=== PATIENT | female | born 1960 | race Caucasian/White ===

== ENCOUNTER → 2016-09-04 | Outpatient (CLI) | payer BC, OTHER ==
--- NOTE | 2016-09-04 17:11 | CT ---
EXAMINATION TYPE: CT sinus wo con DATE OF EXAM: 09/04/2016 5:00 PM COMPARISON: NONE HISTORY: facial pain and chronics sinus infections CT DLP: 570.8 mGycm Automated exposure control for dose reduction was used. FINDINGS: There is bilateral patency of the ostiomeatal complex. Orbital margins are intact. Maxilla is intact. There is normal aeration of the paranasal sinuses. Mastoid sinuses appear normal as well. I see no b temo destructive process. IMPRESSION: NEGATIVE CT SCAN OF THE PARANASAL SINUSES.
== END | disposition home or self-care (01) ==
LOC: RADCTMAIN 16:40
PROVIDERS: ATTEND Otolaryngology
DX: J32.9 Chronic sinusitis, unspecified (principal)
CPT/HCPCS: 70486

== ENCOUNTER → 2016-10-31 | Outpatient (CLI) | payer BC, OTHER ==
--- NOTE | 2016-10-31 15:33 | MR ---
EXAMINATION TYPE: MR thoracic spine wo con DATE OF EXAM: 10/31/2016 1:38 PM COMPARISON: NONE HISTORY: post laminectomy, eval for stenosis CONTRAST: None FINDINGS: Spinal cord maintains normal signal through its visualized course. Disc heights are preserv ed. Mild diffuse disc desiccation may be present. A T8 hemangioma is likely present. T1-2, T2-3: Minimal central disc bulge is present with anterior thecal sac contact. No cord deformity is evident. No spinal canal stenosis is present. Through the remainder of the thoracic spine, no focal disc herniation is evident. No spinal canal maco nosis or neural foraminal stenosis is evident. IMPRESSION: 1. Mild central focal bulging T1-2 and T2-3 with mild anterior thecal sac compression. 2. No spinal canal stenosis. 3. No cord contact or cord deformity.
== END | disposition home or self-care (01) ==
LOC: RADMRIMAIN 12:34
PROVIDERS: ATTEND Neurological Surgery
DX: M51.24 Other intervertebral disc displacement, thoracic region (principal)
CPT/HCPCS: 72146

== ENCOUNTER → 2019-02-26 | Outpatient (CLI) | payer OTHER ==
--- NOTE | 2019-02-26 10:00 | US ---
EXAMINATION TYPE: US gallbladder DATE OF EXAM: 02/26/2019 COMPARISON: CT 2010 CLINICAL HISTORY: R10.11 Rt Upper quadrant pain. EXAM MEASUREMENTS: Liver Length: 15.3 cm Gallbladder Wall: 0.1 cm CBD: 0.4 cm Right Kidney: 10.1 x 4.6 x 3.5 cm Pancreas: Obscured by bowel gas Liver: There is a questionable subcentimeter hyperechoic lesion within the inferior right lobe of th e liver on image 26/67 only. This could be further evaluated with three-phase CT. Gallbladder: No stones seen. GB with folds and probable 3 mm nonshadowing nondependent polyp. Evidence for sonographic Perdue's sign: No CBD: wnl Right Kidney: wnl IMPRESSION: 1. No sonographic evidence of cholelithiasis or cholecystitis however there appears to be a 3 mm gall bladder polyp. Annual surveillance is recommended for polyps of this size. 2. Possible subcentimeter hyperechoic hepatic lesion that could represent a small hemangioma. Three-p hase CT abdomen could be performed for further evaluation. 3. Obscuration of the pancreas by overlying bowel gas.
== END | disposition home or self-care (01) ==
LOC: RADUSWWP 09:20
PROVIDERS: ATTEND Family Medicine
DX: R10.11 Right upper quadrant pain (principal)
CPT/HCPCS: 76705

== ENCOUNTER → 2019-04-15 | Outpatient (CLI) | payer OTHER ==
--- NOTE | 2019-04-16 07:51 | NM ---
Nuclear medicine hepatobiliary scan. HISTORY: Pain. DOSAGE: The patient received 8 ounces and sure plus and 4.6 mCi of Technetium 99m Choletec. FINDINGS: There is normal hepatic extraction. The gallbladder is seen by 35 minutes. There is bilia ry to bowel clearance by 20 minutes. Ejection fraction is 98%. IMPRESSION: 1. No evidence of cholecystitis. 2. Ejection fraction 98% which can occasionally be seen with hyperdynamic gallbladder.
== END | disposition home or self-care (01) ==
LOC: RADNMMAIN 15:01
PROVIDERS: ATTEND Family Medicine
DX: R10.11 Right upper quadrant pain (principal)
CPT/HCPCS: 78226; A9537

== ENCOUNTER → 2021-04-15 | Outpatient (CLI) | payer OTHER ==
--- NOTE | 2021-04-16 09:31 | CT ---
EXAMINATION TYPE: CT abdomen pelvis wo con DATE OF EXAM: 04/15/2021 COMPARISON: CT dated 07/11/2010 HISTORY: ABD PAIN AND VOMITING CT DLP: 540.8 mGycm Automated exposure control for dose reduction was used. TECHNIQUE: Helical acquisition of images from the lung bases through the pelvis. FINDINGS: Lack of intravenous contrast could compromise sensitivity LUNG BASES: No significant abnormality is appreciated. AORTA: No significant abnormality is appreciataed. LIVER/GB: No significant abnormality is appreciated. PANCREAS: No significant abnormality is seen. SPLEEN: No significant abnormality is seen. ADRENALS: No significant abnormality is seen. KIDNEYS: Punctate nonobstructive calcification present at the lower pole the left kidney is present, at the upper pole there is a small cystic focus suspected. There is no hydronephrosis bilaterally.. REPRODUCTIVE ORGANS: Not seen URINARY BLADDER: No significant abnormality is seen. BOWEL: Thickening along the rectosigmoid colon, descending colon is nonspecific, may be muscular hyp ertrophy or lack of distention, difficult to exclude a mucosal lesion or colitis. Appendix is not see n FREE AIR: No Free Air is visible. ASCITES: None visible. PELVIC ADENOPATHY: None visualized. RETROPERITONEAL ADENOPATHY: No Retroperitoneal Adenopathy visible. OSSEOUS STRUCTURES: Postop changes are noted to the lower lumbar spine, intervertebral spacing block s present at L4-5 and L5-S1, there is streak artifact present, laminectomy change. Degenerative disc changes, spinal curvature noted. IMPRESSION: PARAESOPHAGEAL HIATAL HERNIA, PARTIAL INTRATHORACIC STOMACH. Additional findings above, postop change .
== END | disposition home or self-care (01) ==
LOC: RADCTMAIN 17:18
PROVIDERS: ATTEND Family Medicine
DX: K44.9 Diaphragmatic hernia without obstruction or gangrene (principal)
CPT/HCPCS: 74176

== ENCOUNTER 2021-05-23 12:31 | Day surgery (SDC) | payer OTHER ==
[2021-05-18 13:41] VITALS: BMI 25.8
[~2021-05-23 12:31] MED LIST: LACTATED RINGERS 1,000 ML IV SCH; LIDOCAINE 1% (10MG/ML) FOR IV START INTRADERMA PRN
[2021-05-23 13:07] VITALS: TEMP 97.1
[2021-05-23] MEDS ORDERED: PROPOFOL 10 MG/ML 20 ML VIAL IV ONE (15:08)
--- NOTE | 2021-05-23 15:12 | P.GSHP ---
History of Present Illness H&P Date: 05/23/21 Chief Complaint: GERD This is a 7-year-old female who presents today for EGD. She's had issues with GERD. Past Medical History Past Medical History: Asthma, GERD/Reflux, Hyperlipidemia, Hypertension, Neurologic Disorder, Thyroid Disorder Additional Past Medical History / Comment(s): HIATAL HERNIA. MIGRAINES History of Any Multi-Drug Resistant Organisms: None Reported Past Surgical History: Appendectomy, Back Surgery, Hysterectomy, Orthopedic Surgery Additional Past Surgical History / Comment(s): COLONOSCOPY/EGD. CERVICAL FUSIO N. JPAIN STIMULATOR RT HIP. RT FOOT SX Past Anesthesia/Blood Transfusion Reactions: Postoperative Nausea & Vomiting (PONV) Smoking Status: Never smoker - Past Family History Sister(s) Family Medical History: Cancer Medications and Allergies Home Medications Medication Instructions Recorded Confirmed Type Atorvastatin [Lipitor] 20 mg PO HS 05/18/21 05/18/21 History Cetirizine HCl [Zyrtec ODT] 10 mg PO DAILY 05/18/21 05/18/21 History Cyclobenzaprine [Flexeril] 10 mg PO BID 05/18/21 05/18/21 History Dicyclomine HCl 20 mg PO TID 05/18/21 05/18/21 History HYDROcodone/APAP 10-325MG [[place] 1 tab PO TID PRN 05/18/21 05/18/21 History 10-325] Levothyroxine Sodium [Synthroid] 100 mcg PO DAILY 05/18/21 05/18/21 History Metoclopramide [Reglan] 10 mg PO TID 05/18/21 05/18/21 History Metoprolol Tartrate [Lopressor] 25 mg PO BID 05/18/21 05/18/21 History Montelukast [Singulair] 10 mg PO HS 05/18/21 05/18/21 History Omeprazole [PriLOSEC] 40 mg PO BID 05/18/21 05/18/21 History Ondansetron [Zofran] 4 mg PO Q8HR PRN 05/18/21 05/18/21 History SUMAtriptan SUCCINATE [Imitrex] 100 mg PO DIRECTED PRN 05/18/21 05/18/21 History Topiramate [Topiramate ER] 100 mg PO BID 05/18/21 05/18/21 History Allergies Allergy/AdvReac Type Severity Reaction Status Date / Time citalopram [From Celexa] Allergy Nausea & Verified 05/18/21 13:32 Vomiting duloxetine [From Cymbalta] Allergy Nausea & Verified 05/18/21 13:32 Vomiting Surgical - Exam Vital Signs Temp Pulse Resp BP Pulse Ox 97.1 F L 71 15 138/91 100 05/23/21 13:06 05/23/21 13:06 05/23/21 13:06 05/23/21 13:06 05/23/21 13:06 - General well developed, well nourished, no distress - Eyes PERRL - ENT normal pinna - Neck no masses - Respiratory normal expansion - Cardiovascular Rhythm: regular - Abdomen Abdomen: soft, non tender Assessment and Plan Assessment: GERD. We'll perform EGD.
--- NOTE | 2021-05-23 15:22 | P.OP ---
Date of Procedure: 05/23/21 Preoperative Diagnosis: GERD Postoperative Diagnosis: Paraesophageal hernia Procedure(s) Performed: EGD Anesthesia: MAC Surgeon: Gary Boyle Pathology: none sent Condition: stable Disposition: PACU Description of Procedure: The patient's placed on the endoscopy table in the lateral position. She rece ived IV sedation. The gastroscope was oropharynx passed in the esophagus into the stomach. The scope was then placed through the pylorus. The first and second portion of the duodenum appeared normal. Scope was brought back the antrum was mildly inflamed. A biopsies performed. The scope was unretroflexed and remainder of the stomach appeared normal. There was a moderate size hiatal hernia. The GE junction was at 37 cm. The distal esophagus appeared minimally inflamed. The proximal esophagus appeared normal. Scope was withdrawn for patient.
[2021-05-23 15:37] VITALS: BP 148/91; PULSE 78; RESP 17
== END 2021-05-23 15:54 | disposition home or self-care (01) ==
LOC: ORWHC2ENDO 12:31
PROVIDERS: ATTEND Surgery
DX: K21.9 Gastro-esophageal reflux disease without esophagitis (principal); K44.9 Diaphragmatic hernia without obstruction or gangrene; I10 Essential (primary) hypertension; E78.5 Hyperlipidemia, unspecified; J45.909 Unspecified asthma, uncomplicated; Z79.899 Other long term (current) drug therapy; Z88.8 Allergy status to other drugs, medicaments and biological substances; Z90.49 Acquired absence of other specified parts of digestive tract
CPT/HCPCS: 43239; J2704; 88305

== ENCOUNTER 2021-06-10 06:00 | Observation (INO) | payer OTHER ==
[~2021-06-10 06:00] MED LIST changes: +ACETAMINOPHEN TAB 500 MG TAB PO PRN; +DEXAMETHASONE SOD PHOSPHATE 4 MG/ML 1 ML VIAL IV ONE; +HEPARIN SODIUM,PORCINE/PF 5,000 UNIT/0.5 ML SYRINGE SQ PRN; +HYDROmorphone 0.5 MG/0.5 ML SYRINGE IVP PRN; -LACTATED RINGERS 1,000 ML IV SCH; -LIDOCAINE 1% (10MG/ML) FOR IV START INTRADERMA PRN; +ONDANSETRON 4 MG/2 ML VIAL IVP ONE
[2021-06-10] MEDS: LACTATED RINGERS 1,000 ML IV SCH (06:55)
[2021-06-10] MEDS ORDERED: MIDAZOLAM 2 MG/2 ML VIAL IVP ONE (07:10)
[2021-06-10] MEDS ORDERED: SCOPOLAMINE 1.5MG/72HR PATCH TRANSDERM ONE (07:10)
[2021-06-10] MEDS ORDERED: MIDAZOLAM 2 MG/2 ML VIAL ONE (08:01)
[2021-06-10] MEDS ORDERED: ROCURONIUM 10 MG/ML (5 ML VIAL) IV ONE (08:01)
[2021-06-10] MEDS ORDERED: KETOROLAC 15 MG/ML 1 ML VIAL ONE (08:01)
[2021-06-10] MEDS ORDERED: fentaNYL (PF) 50 MCG/ML 2 ML AMP ONE (08:01)
[2021-06-10] MEDS ORDERED: LIDOCAINE 1% INJ 10MG/ML (20 ML MDV) ONE (08:01)
[2021-06-10] MEDS ORDERED: NEOSTIGMINE 1 MG/ML 10 ML VIAL ONE (08:01)
[2021-06-10] MEDS ORDERED: PROPOFOL 10 MG/ML 20 ML VIAL IV ONE (08:01)
[2021-06-10] MEDS ORDERED: GLYCOPYRROLATE 0.2 MG/ML 2 ML VIAL ONE (08:01)
[2021-06-10] MEDS ORDERED: HYDROmorphone (PF) 1 MG/ML ONE (08:01)
[2021-06-10] MEDS ORDERED: LABETALOL 5 MG/ML VIAL MDV ONE (08:01)
[2021-06-10] MEDS ORDERED: SUCCINYLCHOLINE CHLORIDE 100 MG/5 ML SYR IV ONE (08:01)
[2021-06-10] MEDS ORDERED: BUPIVACAINE (PF) 0.5% 30 ML VIAL SQ ONE (08:22)
[2021-06-10] MEDS ORDERED: LACTATED RINGERS 1,000 ML IV ONE (08:48)
--- NOTE | 2021-06-10 09:00 | P.GSHP ---
History of Present Illness H&P Date: 06/10/21 Chief Complaint: GERD This is a 7-year-old female who's had long-standing problems with dysphagia and reflux. Patient has a moderately large hiatal hernia. Patient presents today for laparoscopic Jey fundal plication. She is aware the risks of surgery. Past Medical History Past Medical History: Asthma, GERD/Reflux, Hyperlipidemia, Hypertension, Neurologic Disorder, Thyroid Disorder Additional Past Medical History / Comment(s): HIATAL HERNIA. MIGRAINES History of Any Multi-Drug Resistant Organisms: None Reported Past Surgical History: Appendectomy, Back Surgery, Hysterectomy, Orthopedic Surgery Additional Past Surgical History / Comment(s): COLONOSCOPY/EGD. CERVICAL FUSION. PAIN STIMULATOR RT HIP. RT FOOT SX Past Anesthesia/Blood Transfusion Reactions: Postoperative Nausea & Vomiting (PONV) Smoking Status: Never smoker - Past Family History Sister(s) Family Medical History: Cancer Medications and Allergies Home Medications Medication Instructions Recorded Confirmed Type Atorvastatin [Lipitor] 20 mg PO HS 05/18/21 06/10/21 History Cetirizine HCl [Zyrtec ODT] 10 mg PO DAILY 05/18/21 06/10/21 History Cyclobenzaprine [Flexeril] 10 mg PO BID 05/18/21 06/10/21 History Dicyclomine HCl 20 mg PO TID 05/18/21 06/10/21 History HYDROcodone/APAP 10-325MG [[place] 1 tab PO TID PRN 05/18/21 06/10/21 History 10-325] Levothyroxine Sodium [Synthroid] 100 mcg PO DAILY 05/18/21 06/10/21 History Metoclopramide [Reglan] 10 mg PO TID 05/18/21 06/10/21 History Metoprolol Tartrate [Lopressor] 25 mg PO BID 05/18/21 06/10/21 History Montelukast [Singulair] 10 mg PO HS 05/18/21 06/10/21 History Omeprazole [PriLOSEC] 40 mg PO BID 05/18/21 06/10/21 History Ondansetron [Zofran] 4 mg PO Q8HR PRN 05/18/21 06/10/21 History SUMAtriptan SUCCINATE [Imitrex] 100 mg PO DIRECTED PRN 05/18/21 06/10/21 History Topiramate [Topiramate ER] 100 mg PO BID 05/18/21 06/10/21 History Allergies Allergy/AdvReac Type Severity Reaction Status Date / Time citalopram [From Celexa] Allergy Nausea & Verified 06/10/21 06:46 Vomiting duloxetine [From Cymbalta] Allergy Nausea & Verified 06/10/21 06:46 Vomiting Surgical - Exam Vital Signs Temp Pulse Resp BP Pulse Ox 98.3 F 69 16 171/90 97 06/10/21 06:45 06/10/21 06:45 06/10/21 06:45 06/10/21 06:45 06/10/21 06:45 - General well developed, well nourished, no distress - Eyes PERRL - ENT normal pinna - Neck no masses - Respiratory normal expansion - Cardiovascular Rhythm: regular - Abdomen Abdomen: soft, non tender Assessment and Plan Assessment: GERD. We'll perform laparoscopic Jey fundal plication
--- NOTE | 2021-06-10 09:01 | P.OP ---
Date of Procedure: 06/10/21 Preoperative Diagnosis: GERD Postoperative Diagnosis: GERD Procedure(s) Performed: Laparoscopic Jey fundal plication Anesthesia: KEENA Surgeon: Gary Boyle Estimated Blood Loss (ml): 5 Pathology: none sent Condition: stable Disposition: PACU Description of Procedure: HarThe patient was placed on the operating table in the supine position. The patient received general anesthesia. And was placed in dorsal lithotomy position. The patient was prepped and draped in the usual sterile fashion. The skin incision sites were anesthetized with 1% local Xylocaine. The skin was incised in the left periumbilical area and then using a blade less 5 mm trocar u nder direct visualization panel cavity was entered. After adequate insufflation the laparoscope was then placed into the peritoneal cavity. Next a 5 mm trochars placed in the right epigastric position. Another 5 millimeter trocar the right lateral position. Another 5 millimeter trocar in the left lateral position a 5 mm trocar is placed in the left epigastric position. And then the initial 5 mm trocar was exchanged for a 10 mm trocar. The left lateral lobe liver was retracted. The hernia was seen. The crural defect was then dissected using the Harmonic scissors device. A 360 crural dissection was performed the esophagus stomach was reduced back into the peritoneal Cavity. The crural defect was then closed using 2-0 Ethibond suture. Next the fundus of the stomach was mobilized using the [place] scissors device. and then a 58-[place] bougie dilator was placed oropharynx passed into the esophagus and stomach the fundal plication wrap was then performed by grasping the fundus posteriorly and bringing it around the esophagus and stomach fundoplication was then performed using 2-0 Ethibond suture. Care was taken that the fundal location rested over top of the intra-abdominal esophagus. There was no injury seen to the stomach or esophagus. The dilator was then withdrawn. The abdomen was irrigated there is no bleeding seen. The trochars were then withdrawn and then skin incision sites were closed using 3-0 Monocryl suture Steri-Strips are applied. Patient thought procedure well and sent to recovery room in stable condition.
[2021-06-10] MEDS ORDERED: LABETALOL SYRINGE 5 MG/ML IVP ONE ×2 (09:20)
[2021-06-10] MEDS: D5-0.45% NACL WITH KCL 20MEQ/L 1,000 ML IV SCH ×2 (11:12→18:07)
--- NOTE | 2021-06-10 14:04 | FL ---
Single contrast esophagram EXAMINATION TYPE: FL esophagus cervic/pharynx DATE OF EXAM: 06/10/2021 1:53 PM COMPARISON: NONE CLINICAL HISTORY: Status post Praneeth fundoplication The patient ingested contrast without difficulty or delay. Noted are changes of Praneeth fundoplicatio n. There is no evidence for leak or obstruction. Small amount of residual contrast within the distal esophagus. IMPRESSION: Post-surgical change of Praneeth fundoplication without evidence for leak or obstruction.
[2021-06-10] MEDS ORDERED: hydrALAZINE HCL 10 MG TAB PO STA (14:11)
[2021-06-10] MEDS: HYDROmorphone 1 MG/ML 1 ML SYRINGE IVP PRN ×3 (14:27→23:33)
[2021-06-10 15:07] VITALS: BMI 24.7
[2021-06-10] MEDS: METOPROLOL TARTRATE 25 MG TAB PO SCH (19:49)
[2021-06-10] MEDS: TOPIRAMATE 100 MG TAB PO SCH (19:49)
[2021-06-10] MEDS ORDERED: MONTELUKAST 10 MG TAB PO SCH (21:00)
[2021-06-10] MEDS: SUMAtriptan succinate 50 MG TAB PO PRN (22:22)
[2021-06-11] MEDS: HYDROmorphone 1 MG/ML 1 ML SYRINGE IVP PRN ×2 (04:10→08:44)
[2021-06-11] MEDS: D5-0.45% NACL WITH KCL 20MEQ/L 1,000 ML IV SCH ×2 (04:10→11:53)
[2021-06-11] MEDS: LACTATED RINGERS 1,000 ML IV SCH (06:04)
[2021-06-11] MEDS ORDERED: LEVOTHYROXINE 100 MCG TAB PO SCH (06:30)
[2021-06-11 08:37] VITALS: PULSE 75; RESP 16; TEMP 97.8
[2021-06-11] MEDS: METOPROLOL TARTRATE 25 MG TAB PO SCH (08:37)
[2021-06-11] MEDS: TOPIRAMATE 100 MG TAB PO SCH (08:37)
[2021-06-11] MEDS ORDERED: ENOXAPARIN 40 MG/0.4 ML SYRINGE SQ SCH (09:00)
[2021-06-11 10:04] VITALS: BP 152/96
[2021-06-11] MEDS: SUMAtriptan succinate 50 MG TAB PO PRN (10:24)
--- NOTE | 2021-06-11 11:22 | P.DS ---
Providers Date of admission: 06/10/21 18:24 Expected date of discharge: 06/11/21 Attending physician: Gary Boyle Consults: 06/10/21 14:08 Consult Physician Routine Consulting Provider: Saurabh Martinez Consult Reason/Comments: medical management Do you want consulting provider notified?: Yes Primary care physician: Stewart Amos MD Hospital Course: Is a 7-year-old female underwent repair of a large hiatal hernia. Patient did well postoperative. Please see hospital chart for details. Procedures: Laparoscopic Jey fundal plication Patient Condition at Discharge: Good Plan - Discharge Summary Discharge Rx Participant: Yes New Discharge Prescriptions: New Ibuprofen [Motrin] 600 mg PO Q6HR PRN #40 tab PRN Reason: Pain Acetaminophen Tab [Tylenol] 650 mg PO Q6H #30 tab Docusate [Colace] 100 mg PO BID #20 cap oxyCODONE HCL [OxyIR] 5 mg PO Q6H PRN 3 Days #10 tab PRN Reason: Pain No Action Metoclopramide [Reglan] 10 mg PO TID Dicyclomine HCl 20 mg PO TID Montelukast [Singulair] 10 mg PO HS Cyclobenzaprine [Flexeril] 10 mg PO BID Cetirizine HCl [Zyrtec ODT] 10 mg PO DAILY Metoprolol Tartrate [Lopressor] 25 mg PO BID SUMAtriptan SUCCINATE [Imitrex] 100 mg PO DIRECTED PRN PRN Reason: Migraine Headache Levothyroxine Sodium [Synthroid] 100 mcg PO DAILY Topiramate [Topiramate ER] 100 mg PO BID Ondansetron [Zofran] 4 mg PO Q8HR PRN PRN Reason: Nausea Omeprazole [PriLOSEC] 40 mg PO BID HYDROcodone/APAP 10-325MG [[place] 10-325] 1 tab PO TID PRN PRN Reason: Pain Atorvastatin [Lipitor] 20 mg PO HS Discharge Medication List Atorvastatin [Lipitor] 20 mg PO HS 05/18/21 [History] Cetirizine HCl [Zyrtec ODT] 10 mg PO DAILY 05/18/21 [History] Cyclobenzaprine [Flexeril] 10 mg PO BID 05/18/21 [History] Dicyclomine HCl 20 mg PO TID 05/18/21 [History] HYDROcodone/APAP 10-325MG [[place] 10-325] 1 tab PO TID PRN 05/18/21 [History] Levothyroxine Sodium [Synthroid] 100 mcg PO DAILY 05/18/21 [History] Metoclopramide [Reglan] 10 mg PO TID 05/18/21 [History] Metoprolol Tartrate [Lopressor] 25 mg PO BID 05/18/21 [History] Montelukast [Singulair] 10 mg PO HS 05/18/21 [History] Omeprazole [PriLOSEC] 40 mg PO BID 05/18/21 [History] Ondansetron [Zofran] 4 mg PO Q8HR PRN 05/18/21 [History] SUMAtriptan SUCCINATE [Imitrex] 100 mg PO DIRECTED PRN 05/18/21 [History] Topiramate [Topiramate ER] 100 mg PO BID 05/18/21 [History] Acetaminophen Tab [Tylenol] 650 mg PO Q6H #30 tab 06/11/21 [Rx] Docusate [Colace] 100 mg PO BID #20 cap 06/11/21 [Rx] Ibuprofen [Motrin] 600 mg PO Q6HR PRN #40 tab 06/11/21 [Rx] oxyCODONE HCL [OxyIR] 5 mg PO Q6H PRN 3 Days #10 tab 06/11/21 [Rx] Follow up Appointment(s)/Referral(s): Gary Boyle MD [STAFF PHYSICIAN] - 1 Week Discharge Disposition: HOME SELF-CARE
== END 2021-06-11 12:32 | disposition home or self-care (01) ==
LOC: OR 06:00 → 6PED 08:53 → OR 18:24
PROVIDERS: ADMIT Surgery; ATTEND Surgery
DX: K21.9 Gastro-esophageal reflux disease without esophagitis (principal); K44.9 Diaphragmatic hernia without obstruction or gangrene; J45.909 Unspecified asthma, uncomplicated; E78.5 Hyperlipidemia, unspecified; I10 Essential (primary) hypertension; E07.9 Disorder of thyroid, unspecified; G43.909 Migraine, unspecified, not intractable, without status migrainosus; G89.29 Other chronic pain; M54.9 Dorsalgia, unspecified; F11.20 Opioid dependence, uncomplicated; R82.998 Other abnormal findings in urine; K59.09 Other constipation; Z20.822 Contact with and (suspected) exposure to COVID-19; Z90.710 Acquired absence of both cervix and uterus; Z98.1 Arthrodesis status; Z90.89 Acquired absence of other organs; Z79.899 Other long term (current) drug therapy; Z79.890 Hormone replacement therapy; Z79.891 Long term (current) use of opiate analgesic; Z88.8 Allergy status to other drugs, medicaments and biological substances; Z80.9 Family history of malignant neoplasm, unspecified
CPT/HCPCS: 87635; 74210; 43280; G0378 ×2; J2250; J1100; J2710; J0690; J2405; J2001; J1650; J3010; J1170 ×3; J1885; J0330; J2704; Q9967; J1644

== ENCOUNTER 2021-08-23 06:27 | Day surgery (SDC) | payer OTHER ==
[2021-08-19 10:48] VITALS: BMI 23.1
[~2021-08-23 06:27] MED LIST changes: +LACTATED RINGERS 1,000 ML IV SCH
[2021-08-23 06:52] VITALS: RESP 16
[2021-08-23] MEDS ORDERED: BUPIVACAIN-EPI 0.25%-1:200,000 30 ML VIAL SQ ONE ×2 (07:30→08:13)
[2021-08-23] MEDS ORDERED: fentaNYL (PF) 50 MCG/ML 2 ML AMP ONE (07:47)
[2021-08-23] MEDS ORDERED: ROCURONIUM 10 MG/ML (5 ML VIAL) IV ONE (07:47)
[2021-08-23] MEDS ORDERED: MIDAZOLAM 2 MG/2 ML VIAL ONE (07:47)
[2021-08-23] MEDS ORDERED: PROPOFOL 10 MG/ML 20 ML VIAL IV ONE (07:47)
[2021-08-23] MEDS ORDERED: LIDOCAINE 1% INJ 10MG/ML (20 ML MDV) ONE (07:47)
[2021-08-23] MEDS ORDERED: SUCCINYLCHOLINE CHLORIDE 100 MG/5 ML SYR IV ONE (07:47)
[2021-08-23] MEDS ORDERED: NEOSTIGMINE 1 MG/ML 10 ML VIAL ONE (07:47)
[2021-08-23] MEDS ORDERED: GLYCOPYRROLATE 0.2 MG/ML 2 ML VIAL ONE (07:47)
--- NOTE | 2021-08-23 08:42 | P.GSHP ---
History of Present Illness H&P Date: 08/23/21 Chief Complaint: Right upper quadrant pain This a 7-year-old female who said complaints were pain. Her recent HIDA scan shows a hyperdynamic gallbladder consistent with biliary dysfunction. Patient resents today for laparoscopic cholecystectomy Past Medical History Past Medical History: Asthma, GERD/Reflux, Hyperlipidemia, Hypertension, Thyroid Disorder Additional Past Medical History / Comment(s): MIGRAINES History of Any Multi-Drug Resistant Organisms: None Reported Past Surgical History: Appendectomy, Back Surgery, Hernia Repair, Hysterectomy, Orthopedic Surgery Additional Past Surgical History / Comment(s): COLONOSCOPY/EGD. CERVICAL FUSION. PAIN STIMULATOR RT HIP. RT FOOT SX. HIATAL HERNIA REPAIR Past Anesthesia/Blood Transfusion Reactions: Postoperative Nausea & Vomiting (PONV) Past Psychological History: No Psychological Hx Reported Smoking Status: Never smoker Past Alcohol Use History: None Reported Past Drug Use History: None Reported - Past Family History Sister(s) Family Medical History: Cancer Mother Additional Family Medical History / Comment(s): alzheimers. Father Family Medical History: Coronary Artery Disease (CAD) Medications and Allergies Home Medications Medication Instructions Recorded Confirmed Type Atorvastatin [Lipitor] 20 mg PO HS 05/18/21 08/19/21 History Cetirizine HCl [Zyrtec ODT] 10 mg PO DAILY 05/18/21 08/19/21 History Cyclobenzaprine [Flexeril] 10 mg PO BID 05/18/21 08/19/21 History Dicyclomine HCl 20 mg PO TID 05/18/21 08/19/21 History HYDROcodone/APAP 10-325MG [[place] 1 tab PO TID PRN 05/18/21 08/19/21 History 10-325] Levothyroxine Sodium [Synthroid] 100 mcg PO DAILY 05/18/21 08/19/21 History Metoclopramide [Reglan] 10 mg PO TID 05/18/21 08/19/21 History Metoprolol Tartrate [Lopressor] 25 mg PO BID 05/18/21 08/19/21 History Montelukast [Singulair] 10 mg PO HS 05/18/21 08/19/21 History Omeprazole [PriLOSEC] 40 mg PO BID 05/18/21 08/19/21 History Ondansetron [Zofran] 4 mg PO Q8HR PRN 05/18/21 08/19/21 History SUMAtriptan SUCCINATE [Imitrex] 100 mg PO DIRECTED PRN 05/18/21 08/19/21 History Topiramate [Topiramate ER] 100 mg PO BID 05/18/21 08/19/21 History Allergies Allergy/AdvReac Type Severity Reaction Status Date / Time citalopram [From Celexa] Allergy Nausea & Verified 08/23/21 06:46 Vomiting duloxetine [From Cymbalta] Allergy Nausea & Verified 08/23/21 06:46 Vomiting Surgical - Exam Vital Signs Temp Pulse Resp BP Pulse Ox 98.0 F 68 16 138/77 98 08/23/21 06:51 08/23/21 06:51 08/23/21 06:51 08/23/21 06:51 08/23/21 06:51 - General well developed, well nourished, no distress - Eyes PERRL - ENT normal pinna - Neck no masses - Respiratory normal expansion - Cardiovascular Rhythm: regular - Abdomen Abdomen: soft, non tender Assessment and Plan Assessment: The dissection Chronic cholecystitis We'll perform laparoscopic cholecystectomy
--- NOTE | 2021-08-23 08:44 | P.OP ---
Date of Procedure: 08/23/21 Preoperative Diagnosis: Cholecystitis Postoperative Diagnosis: Cholecystitis Procedure(s) Performed: Laparoscopic cholecystectomy Anesthesia: KEENA Surgeon: Gary Boyle Estimated Blood Loss (ml): 5 Pathology: other (Gallbladder) Condition: stable Disposition: PACU Description of Procedure: The patient was placed on the operating table. The patient received a general endotracheal tube anesthesia. The patients abdomen was prepped and draped in the usual sterile fashion. Through an infraumbilical stab incision, the fascia of the anterior abdominal wall was grasped with a pair of Kochers and then the Veress needle was placed in the peritoneal cavity. Position of the Veress needle was confirmed with positive drop test. The abdomen was then insufflated. After adequate insufflation, the 10 mm trocar was placed in the peritoneal cavity. Following this the laparoscope was placed in the peritoneal cavity. The patient was placed in the head-up, right side up position and then a 5 mm trocar was placed in the right lateral and right subcostal position under direct visualization. A 8 mm trocar was placed in the epigastric position. The gallbladder was grasped in the fundus and infundibulum. Traction on the gallbladder was placed in the lateral and the cephalad positions. The triangle of [place] was visualized.. The cystic duct was bluntly dissected until the union of the cystic duct and common bile duct was seen. A critical view of safety was achieved. The cystic duct was then divided and sealed with the Harmonic scissors. A PDS Endoloop was then placed throughout the cystic duct stump. The cystic artery divided and sealed with the Harmonic scissors. The gallbladder was then removed from the liver bed using Harmonic scissors. The gallbladder was then extracted through the epigastric port site. Operative field was checked for any bleeding spots and Harmonic scissors was used to coagulate the liver bed. The abdomen was irrigated. The trocars were removed. The skin was closed using interrupted 3-0 Vicryl suture. Dermabond dressing were applied. The patient tolerated the procedure well.
[2021-08-23 08:47] VITALS: TEMP 97.8
[2021-08-23] MEDS ORDERED: SODIUM CHLORIDE 0.9% 1,000 ML IV ONE (09:16)
[2021-08-23 09:50] VITALS: BP 150/90; PULSE 70
== END 2021-08-23 10:03 | disposition home or self-care (01) ==
LOC: OR 06:27
PROVIDERS: ATTEND Surgery
DX: K81.1 Chronic cholecystitis (principal); J45.909 Unspecified asthma, uncomplicated; K21.9 Gastro-esophageal reflux disease without esophagitis; E78.5 Hyperlipidemia, unspecified; I10 Essential (primary) hypertension; E07.9 Disorder of thyroid, unspecified; G43.909 Migraine, unspecified, not intractable, without status migrainosus; Z86.73 Personal history of transient ischemic attack (TIA), and cerebral infarction without residual deficits; R56.9 Unspecified convulsions; M19.90 Unspecified osteoarthritis, unspecified site; Z90.710 Acquired absence of both cervix and uterus; Z90.49 Acquired absence of other specified parts of digestive tract; Z98.1 Arthrodesis status; Z98.890 Other specified postprocedural states; Z96.82 Presence of neurostimulator; Z80.9 Family history of malignant neoplasm, unspecified; Z81.8 Family history of other mental and behavioral disorders; Z82.49 Family history of ischemic heart disease and other diseases of the circulatory system; Z79.890 Hormone replacement therapy; Z79.899 Other long term (current) drug therapy; Z88.8 Allergy status to other drugs, medicaments and biological substances
CPT/HCPCS: 88304; 47562; J2250; J1100; J2710; J0690; J2405; J2001; J3010; J0330; J2704; J1644

== ENCOUNTER → 2021-12-09 | Outpatient (CLI) | payer OTHER ==
--- NOTE | 2021-12-09 16:29 | FL ---
EXAMINATION TYPE: FL UGI air w esophagus DATE OF EXAM: 12/09/2021 COMPARISON: None HISTORY: Dysphagia history of intrathoracic stomach with repair surgery. TECHNIQUE: Single contrast technique was performed as possible Praneeth fundoplication cannot be exclud ed. FINDINGS: Esophagus dilates normal caliber and has a normal contour to the gastroesophageal junction. Secondary and tertiary contractions were evident during this examination. There is incomplete stripp ing of the esophageal bolus in the horizontal drinking position. There is a small hiatal hernia present through this examination. Upper GI: Initial imaging through the stomach suggests some prominence of the gastric folds. However, later in the examination is has a more normal appearance suggesting better distention. No suspicious intraluminal or extramural defects within the stomach is evident. There is no hesitancy of contrast passing through the stomach into the duodenum. Ligament of Treitz i s in normal position. There is some prominence of the duodenal size. IMPRESSION: 1. Presbyesophagus. 2. Small stable hiatal hernia. 3. Prominent size duodenum of uncertain clinical significance. 4. Some mild gastritis is not excluded. This could be related to incomplete distention with the singl e contrast study.
== END | disposition home or self-care (01) ==
LOC: RADUSWWP 10:57
PROVIDERS: ATTEND Surgery
DX: K22.89 Other specified disease of esophagus (principal); K44.9 Diaphragmatic hernia without obstruction or gangrene
CPT/HCPCS: 74246

== ENCOUNTER → 2021-12-12 | Day surgery (SDC) | payer OTHER ==
[2021-12-09 08:54] VITALS: BMI 22.0
[~2021-12-12] MED LIST changes: -ACETAMINOPHEN TAB 500 MG TAB PO PRN; -DEXAMETHASONE SOD PHOSPHATE 4 MG/ML 1 ML VIAL IV ONE; -HEPARIN SODIUM,PORCINE/PF 5,000 UNIT/0.5 ML SYRINGE SQ PRN; -HYDROmorphone 0.5 MG/0.5 ML SYRINGE IVP PRN; -LACTATED RINGERS 1,000 ML IV SCH; +LACTATED RINGERS 600 ML IV ONE; -ONDANSETRON 4 MG/2 ML VIAL IVP ONE; +PROPOFOL 10 MG/ML 20 ML VIAL IV ONE
--- NOTE | 2021-12-12 11:14 | P.GSHP ---
History of Present Illness H&P Date: 12/12/21 Chief Complaint: Dysphagia, GERD This a 7-year-old female with dysphagia and GERD. H presents today for EGD. Past Medical History Past Medical History: Asthma, GERD/Reflux, Hyperlipidemia, Hypertension, Thyroid Disorder Additional Past Medical History / Comment(s): MIGRAINES. History of Any Multi-Drug Resistant Organisms: None Reported Past Surgical History: Appendectomy, Back Surgery, Cholecystectomy, Hernia Repair, Hysterectomy, Orthopedic Surgery Additional Past Surgical History / Comment(s): COLONOSCOPY/EGD, CERVICAL FUSION, PAIN STIMULATOR RIGHT HIP,. RIGHT FOOT SURGERY, HIATAL HERNIA REPAIR. Past Anesthesia/Blood Transfusion Reactions: Family History of Problems w/ Anesthesia, Postoperative Nausea & Vomiting (PONV) Additional Past Anesthesia/Blood Transfusion Reaction / Comment(s): Mom very slow to wake up. Past Psychological History: No Psychological Hx Reported Smoking Status: Never smoker Past Alcohol Use History: None Reported Past Drug Use History: None Reported - Past Family History Sister(s) Family Medical History: Cancer Mother Family Medical History: Cancer Additional Family Medical History / Comment(s): Uterine cancer, Alzheimers. Father Family Medical History: Coronary Artery Disease (CAD) Medications and Allergies Home Medications Medication Instructions Recorded Confirmed Type Atorvastatin [Lipitor] 20 mg PO HS 05/18/21 08/19/21 History Cetirizine HCl [Zyrtec ODT] 10 mg PO DAILY 05/18/21 08/19/21 History Cyclobenzaprine [Flexeril] 10 mg PO BID 05/18/21 08/19/21 History Dicyclomine HCl 20 mg PO TID 05/18/21 08/19/21 History HYDROcodone/APAP 10-325MG [[place] 1 tab PO TID PRN 05/18/21 08/19/21 History 10-325] Levothyroxine Sodium [Synthroid] 100 mcg PO DAILY 05/18/21 08/19/21 History Metoclopramide [Reglan] 10 mg PO TID 05/18/21 08/19/21 History Metoprolol Tartrate [Lopressor] 25 mg PO BID 05/18/21 08/19/21 History Montelukast [Singulair] 10 mg PO HS 05/18/21 08/19/21 History Omeprazole [PriLOSEC] 40 mg PO BID 05/18/21 08/19/21 History Ondansetron [Zofran] 4 mg PO Q8HR PRN 05/18/21 08/19/21 History SUMAtriptan SUCCINATE [Imitrex] 100 mg PO DIRECTED PRN 05/18/21 08/19/21 History Topiramate [Topiramate ER] 100 mg PO BID 05/18/21 08/19/21 History Acetaminophen Tab [Tylenol] 650 mg PO Q6H #30 tab 08/23/21 Rx Docusate [Colace] 100 mg PO BID #20 capsule 08/23/21 Rx Ibuprofen [Motrin] 600 mg PO Q6HR PRN #40 tab 08/23/21 Rx oxyCODONE HCL [OxyIR] 5 mg PO Q6H PRN 3 Days #10 tab 08/23/21 Rx Allergies Allergy/AdvReac Type Severity Reaction Status Date / Time citalopram [From Celexa] Allergy Nausea & Verified 12/09/21 08:42 Vomiting duloxetine [From Cymbalta] Allergy Nausea & Verified 12/09/21 08:42 Vomiting Surgical - Exam - General well developed, well nourished, no distress - Eyes PERRL - ENT normal pinna - Neck no masses - Respiratory normal expansion - Cardiovascular Rhythm: regular - Abdomen Abdomen: soft, non tender Assessment and Plan Assessment: GERD, dysphagia. We'll perform EGD
--- NOTE | 2021-12-12 11:25 | P.OP ---
Date of Procedure: 12/12/21 Preoperative Diagnosis: GERD Dysphagia Postoperative Diagnosis: Small recurrent hiatal hernia Antral gastritis Procedure(s) Performed: EGD Anesthesia: MAC Surgeon: Gary Boyle Pathology: other (Antrum) Condition: stable Disposition: PACU Description of Procedure: The patient's placed on the endoscopy table in the lateral position. She received IV sedation. The gastro-/oropharynx passed in the esophagus and into the stomach. Scope was then placed through the pylorus. The first and second portion of the duodenum appeared normal. Scope summer back the antrum was mildly inflamed. A biopsies performed. The scope was then retroflexed and the remainder the stomach appeared normal. There was a small hiatal hernia. The GE junction was at 38 cm. The distal esophagus appeared normal. The proximal esophagus appeared normal. Scope was withdrawn for patient.
[2021-12-12 11:46] VITALS: BP 127/82; PULSE 70; RESP 20
== END ==
LOC: ORWHC2ENDO 09:24
PROVIDERS: ATTEND Surgery
DX: K29.50 Unspecified chronic gastritis without bleeding (principal); K31.A11 Gastric intestinal metaplasia without dysplasia, involving the antrum; K44.9 Diaphragmatic hernia without obstruction or gangrene; E78.5 Hyperlipidemia, unspecified; I10 Essential (primary) hypertension; J45.909 Unspecified asthma, uncomplicated; K21.9 Gastro-esophageal reflux disease without esophagitis; Z79.1 Long term (current) use of non-steroidal anti-inflammatories (NSAID); Z82.49 Family history of ischemic heart disease and other diseases of the circulatory system; Z88.8 Allergy status to other drugs, medicaments and biological substances; Z90.49 Acquired absence of other specified parts of digestive tract
CPT/HCPCS: 43239; 88305; 88342; J2704

== ENCOUNTER → 2021-12-20 | Outpatient (CLI) | payer OTHER ==
[2021-12-20 22:51] LABS: Basophils # (A) 0.06 X 10*3/uL (0.00-0.10); Basophils % (A) 0.7 %; Eosinophils # (A) 0.12 X 10*3/uL (0.04-0.35); Eosinophils % (A) 1.4 %; HCT 42.1 % (37.2-46.3); HGB 13.3 g/dL (12.0-15.0); Immature Grans, Automated 0.4 %; Lymphocytes # (A) 1.78 X 10*3/uL (0.90-5.00); Lymphocytes % (A) 21.2 %; MCH 31.1 pg (27.0-32.0); MCHC 31.6 g/dL (32.0-37.0); MCV 98.6 fL (80.0-97.0); Mean Platelet Volume 11.5 fL (9.5-12.2); Monocytes # (A) 0.38 X 10*3/uL (0.20-1.00); Monocytes % (A) 4.5 %; NRBC Per 100 WBC 0 /100 WBCS (0.0-0.0); Neutrophils # (A) 6.01 X 10*3/uL (1.80-7.70); Neutrophils % (A) 71.8 %; Platelet Count 302 X 10*3/uL (140-440); RBC 4.27 X 10*6/uL (4.10-5.20); RDW 14.7 % (11.5-14.5); WBC 8.38 X 10*3/uL (4.50-10.00)
== END | disposition home or self-care (01) ==
LOC: LABPAT 14:01
PROVIDERS: ATTEND Surgery
DX: Z01.812 Encounter for preprocedural laboratory examination (principal)
CPT/HCPCS: 36415; 85025

== ENCOUNTER 2022-01-03 07:44 | Observation (INO) | payer OTHER ==
[~2022-01-03 07:44] MED LIST changes: +ACETAMINOPHEN TAB 500 MG TAB PO PRN; +DEXAMETHASONE SOD PHOSPHATE 4 MG/ML 1 ML VIAL IV ONE; +HEPARIN SODIUM,PORCINE/PF 5,000 UNIT/0.5 ML SYRINGE SQ PRN; +LACTATED RINGERS 1,000 ML IV SCH; -LACTATED RINGERS 600 ML IV ONE; +LIDOCAINE 1% (10MG/ML) FOR IV START INTRADERMA PRN; +MIDAZOLAM 2 MG/2 ML VIAL IV PRN; +ONDANSETRON 4 MG/2 ML VIAL IVP ONE; -PROPOFOL 10 MG/ML 20 ML VIAL IV ONE
--- NOTE | 2022-01-03 09:09 | P.GSHP ---
History of Present Illness H&P Date: 01/03/22 Chief Complaint: Dysphagia This 7-year-old female with complaints of dysphagia. Patient developed a recurrent hiatal hernia. She presents today for laparoscopic repair. Past Medical History Past Medical History: Asthma, GERD/Reflux, Hyperlipidemia, Hypertension, Thyroid Disorder Additional Past Medical History / Comment(s): MIGRAINES. History of Any Multi-Drug Resistant Organisms: None Reported Past Surgical History: Appendectomy, Back Surgery, Cholecystectomy, Hernia Repair, Hysterectomy, Orthopedic Surgery Additional Past Surgical History / Comment(s): COLONOSCOPY/EGD, CERVICAL FUSION, PAIN STIMULATOR RIGHT HIP,. RIGHT FOOT SURGERY, HIATAL HERNIA REPAIR. Past Anesthesia/Blood Transfusion Reactions: Family History of Problems w/ Anesthesia, Postoperative Nausea & Vomiting (PONV) Additional Past Anesthesia/Blood Transfusion Reaction / Comment(s): Mom very slow to wake up. Smoking Status: Never smoker - Past Family History Sister(s) Family Medical History: Cancer Mother Family Medical History: Cancer Additional Family Medical History / Comment(s): Uterine cancer, Alzheimers. Father Family Medical History: Coronary Artery Disease (CAD) Medications and Allergies Home Medications Medication Instructions Recorded Confirmed Type Atorvastatin [Lipitor] 20 mg PO HS 05/18/21 01/03/22 History Cetirizine HCl [Zyrtec ODT] 10 mg PO DAILY 05/18/21 01/03/22 History Cyclobenzaprine [Flexeril] 10 mg PO BID 05/18/21 01/03/22 History Dicyclomine HCl 20 mg PO TID 05/18/21 01/03/22 History HYDROcodone/APAP 10-325MG [[place] 1 tab PO TID PRN 05/18/21 01/03/22 History 10-325] Levothyroxine Sodium [Synthroid] 88 mcg PO DAILY 05/18/21 01/03/22 History Metoclopramide [Reglan] 10 mg PO TID 05/18/21 01/03/22 History Metoprolol Tartrate [Lopressor] 25 mg PO BID 05/18/21 01/03/22 History Montelukast [Singulair] 10 mg PO HS 05/18/21 01/03/22 History Omeprazole [PriLOSEC] 40 mg PO BID 05/18/21 01/03/22 History Ondansetron [Zofran] 4 mg PO Q8HR PRN 05/18/21 01/03/22 History SUMAtriptan SUCCINATE [Imitrex] 100 mg PO DIRECTED PRN 05/18/21 01/03/22 History Topiramate [Topiramate ER] 100 mg PO BID 05/18/21 01/03/22 History Docusate [Colace] 100 mg PO BID PRN 01/02/22 01/03/22 History Allergies Allergy/AdvReac Type Severity Reaction Status Date / Time citalopram [From Celexa] Allergy Nausea & Verified 01/03/22 08:23 Vomiting duloxetine [From Cymbalta] Allergy Nausea & Verified 01/03/22 08:23 Vomiting Surgical - Exam Vital Signs Temp Pulse Resp BP Pulse Ox 98.3 F 66 16 126/79 99 01/03/22 08:20 01/03/22 08:20 01/03/22 08:20 01/03/22 08:20 01/03/22 08:20 - General well developed, well nourished, no distress - Eyes PERRL - ENT normal pinna - Neck no masses - Respiratory normal expansion - Cardiovascular Rhythm: regular - Abdomen Abdomen: soft, non tender Assessment and Plan Assessment: Dysphagia Recurrent hiatal hernia We'll perform laparoscopic repair.
[2022-01-03] MEDS ORDERED: KETAMINE 10 MG/ML 20 ML VIAL ONE (09:30)
[2022-01-03] MEDS ORDERED: SUCCINYLCHOLINE CHLORIDE 100 MG/5 ML SYR IV ONE (09:30)
[2022-01-03] MEDS ORDERED: ROCURONIUM 10 MG/ML (5 ML VIAL) IV ONE (09:30)
[2022-01-03] MEDS ORDERED: fentaNYL (PF) 50 MCG/ML 2 ML AMP ONE (09:30)
[2022-01-03] MEDS ORDERED: HYDROmorphone (PF) 1 MG/ML ONE (09:30)
[2022-01-03] MEDS ORDERED: PROPOFOL 10 MG/ML 20 ML VIAL IV ONE (09:30)
[2022-01-03] MEDS ORDERED: LIDOCAINE 2% INJ 20 MG/ML (2 ML VIAL) ONE (09:30)
[2022-01-03] MEDS ORDERED: NEOSTIGMINE 1 MG/ML 10 ML VIAL ONE (09:30)
[2022-01-03] MEDS ORDERED: METOPROLOL TARTRATE 5 MG/5 ML VIAL IVP ONE (09:30)
[2022-01-03] MEDS ORDERED: GLYCOPYRROLATE 0.2 MG/ML 2 ML VIAL ONE (09:30)
[2022-01-03] MEDS ORDERED: KETOROLAC 15 MG/ML 1 ML VIAL ONE (09:30)
[2022-01-03] MEDS ORDERED: BUPIVACAINE (PF) 0.25% 30 ML VIAL SQ ONE (10:04)
[2022-01-03] MEDS ORDERED: ONDANSETRON 4 MG/2 ML VIAL IVP PRN (11:05)
--- NOTE | 2022-01-03 11:05 | P.OP ---
Date of Procedure: 01/03/22 Preoperative Diagnosis: Recurrent paraesophageal hernia Postoperative Diagnosis: Recurrent paraesophageal hernia Procedure(s) Performed: Laparoscopic repair of paraesophageal hernia with [place] bio a mesh Transversus abdominis plane block Anesthesia: KEENA Surgeon: Gary Boyle Estimated Blood Loss (ml): 10 Pathology: none sent Condition: stable Disposition: PACU Indications for Procedure: Dysphagia Description of Procedure: The patient was placed on the operating table in the supine position. The patient received general anesthesia. And was placed in dorsal lithotomy position. The patient was prepped and draped in the usual sterile fashion. The skin incision sites were anesthetized with 1% local Xylocaine. The skin was incised in the left periumbilical area and then using a blade less 5 mm trocar under direct visualization panel cavity was entered. After adequate insufflation the laparoscope was then placed into the peritoneal cavity. Next a 5 mm trochars placed in the right epigastric position. Another 5 millimeter trocar the right lateral position. Another 5 millimeter trocar in the left lateral position a 5 mm trocar is placed in the left epigastric position. And then the initial 5 mm trocar was exchanged for a 10 mm trocar. The left lateral lobe liver was retracted. The hernia was seen. The anterior gastric wall plication was taken down with sharp dissection. This left a 180 wrap. The arnel was dissected. Care was taken to identify and preserve the esophagus. Once the arnel was dissected. Stomach and esophagus were insufflated with methylene blue normal saline. 500 mL of methylene blue normal saline were placed across the operative field. There was no evidence of any extravasation. Compression was held on the stomach in order to insufflate the proximal one third of the stomach. The area was inspected. There is no evidence of any injury to the stomach or esophagus. At this point the crural defect was closed using 2-0 Ethibond suture. A 58-Swedish bougie dilator was placed across the crural repair. There was no evidence of significant tension. A grasper could be placed alongside the esophagus with the dilator in position. At this point the [place] bio a mesh was placed into the. Cavity. And secured with the some right device. The abdomen was irrigated there is no bleeding seen. The trochars withdrawn. Skin was closed interrupted 3-0 Monocryl suture. Dermabond dressings was applied.
[2022-01-03] MEDS: HYDROmorphone 0.5 MG/0.5 ML SYRINGE IVP PRN ×2 (11:19→13:08)
[2022-01-03] MEDS: METOCLOPRAMIDE 5 MG/ML 2 ML VIAL IVP SCH ×3 (15:52→23:31)
[2022-01-03] MEDS: HYDROmorphone 1 MG/ML 1 ML SYRINGE IVP PRN ×2 (16:01→19:54)
[2022-01-03] MEDS: D5-0.45% NACL WITH KCL 20MEQ/L 1,000 ML IV SCH (17:49)
[2022-01-03] MEDS: FAMOTIDINE 20 MG/2 ML VIAL IV SCH (19:54)
[2022-01-04] MEDS: HYDROmorphone 1 MG/ML 1 ML SYRINGE IVP PRN ×2 (01:13→05:56)
[2022-01-04 05:48] LABS: Basophils # (A) 0.1 k/uL (0-0.2); Basophils % (A) 0 %; Eosinophils # (A) 0.1 k/uL (0-0.7); Eosinophils % (A) 1 %; HCT 42.7 % (34.0-46.0); HGB 12.9 gm/dL (11.4-16.0); Lymphocytes # (A) 2.2 k/uL (1.0-4.8); Lymphocytes % (A) 21 %; MCH 30.6 pg (25.0-35.0); MCHC 30.2 g/dL (31.0-37.0); MCV 101.3 fL (80.0-100.0); Macrocytosis Slight; Mean Platelet Volume 8.5; Monocytes # (A) 0.7 k/uL (0-1.0); Monocytes % (A) 6 %; Neutrophils # (A) 7.3 k/uL (1.3-7.7); Neutrophils % (A) 70 %; Platelet Count 221 k/uL (150-450); RBC 4.22 m/uL (3.80-5.40); RDW 13.8 % (11.5-15.5); WBC 10.5 k/uL (3.8-10.6)
[2022-01-04] MEDS: D5-0.45% NACL WITH KCL 20MEQ/L 1,000 ML IV SCH ×4 (05:55→21:40)
[2022-01-04] MEDS: METOCLOPRAMIDE 5 MG/ML 2 ML VIAL IVP SCH ×4 (05:56→23:29)
[2022-01-04 05:57] LABS: African American GFR (CKD) >90 (>60 ml/min/1.73 sqM); Anion Gap 8 mmol/L; Blood Urea Nitrogen 10 mg/dL (7-17); Carbon Dioxide 24 mmol/L (22-30); Chloride 107 mmol/L (98-107); Glucose 111 mg/dL (74-99); Non-African American GFR(CKD) >90 (>60 ml/min/1.73 sqM); Potassium 3.7 mmol/L (3.5-5.1); Sodium 139 mmol/L (137-145)
[2022-01-04] MEDS ORDERED: MAGNESIUM SULFATE-D5W PMX 1 GM in DEXTROSE/WATER 1 100ML.BAG IVPB ONE (08:49)
[2022-01-04] MEDS: FAMOTIDINE 20 MG/2 ML VIAL IV SCH ×2 (08:49→19:52)
[2022-01-04] MEDS: ENOXAPARIN 40 MG/0.4 ML SYRINGE SQ SCH (08:52)
--- NOTE | 2022-01-04 08:58 | FL ---
EXAMINATION TYPE: FL esophagus cervic/pharynx DATE OF EXAM: 01/04/2022 LIMITED UGI-ESOPHAGRAM: CLINICAL HISTORY: Recurrent hiatal hernia, history of original Jey fundoplication surgery June 10, 2021 with repeat surgery yesterday . TECHNIQUE: Limited esophagram is performed utilizing 20 oz of Isovue-370. A total of 15 seconds of f luoroscopic time was utilized during procedure and 21 images obtained. FINDINGS: Patient was extremely nauseous when presented. The patient was able to swallow contrast. Esophageal peristalsis and motility are satisfactory. Note is made of thoracic spinal stimulator rede monstrated. There is good flow of contrast along the diaphragmatic hiatus into the stomach, there is no evidence of contrast extravasation to suggest leak. No persistent hiatal hernia is seen. Patient s hows no increased nausea or vomiting. Small amount of free air below the right hemidiaphragm is noted . Some residual contrast in colonic loops from recent upper GI study is incidentally seen. Elevated l eft hemidiaphragm redemonstrated. IMPRESSION: No evidence of leak or significant obstruction status post repeat Praneeth fundoplication s urgery yesterday.
[2022-01-04] MEDS ORDERED: ENOXAPARIN 30 MG/0.3 ML SYRINGE SQ SCH (09:00)
[2022-01-04] MEDS: ACETAMINOPHEN IV (For NPO) 1,000 MG in EMPTY BAG 1 BAG IVPB PRN ×2 (11:43→19:47)
[2022-01-04] MEDS ORDERED: SUMAtriptan succinate 6 MG/0.5 ML VIAL SQ STA (12:00)
[2022-01-04] MEDS: PANTOPRAZOLE 40 MG/10 ML VIAL IVP SCH (12:09)
[2022-01-04 14:21] VITALS: BMI 20.1
--- NOTE | 2022-01-04 14:30 | P.PN ---
Subjective Progress Note Date: 01/04/22 CHIEF COMPLAINT: Recurrent paraesophageal hernia HISTORY OF PRESENT ILLNESS: Patient is status post laparoscopic repair of paraesophageal hernia with mesh placement and transversus abdominis pain block. Patient complaining of migraine headache. She does report some flatus. Denies any nausea or vomiting. Does complain of some abdominal pain. She is just started her liquid diet. Upper GI shows no evidence of leak or significant obstruction status post Jey fundoplication. Afebrile. WBC is 10.5 hemoglobin 12.9 platelets 221 sodium is 139 potassium 3.7 creatinine 0.60 PHYSICAL EXAM: VITAL SIGNS: Reviewed. GENERAL: Well-developed in no acute distress. HEENT: No sclera icterus. Extraocular movements grossly intact. Moist buccal mucosa. Head is atraumatic, normocephalic. ABDOMEN: Soft. Nondistended. Incision sites clean dry and intact NEUROLOGIC: Alert and oriented. Cranial nerves II through XII grossly intact. ASSESSMENT: 1. Recurrent paraesophageal hernia status post laparoscopic repair of paraesophageal hernia with mesh placement 2. Migraine headache PLAN: -Start Jey clear liquid diet -Imitrex subcu ordered for migraine headache -Add oral [place] as needed for pain -Continue IV fluids -Encouraged patient to ambulate -Continue antiemetics as needed -GI prophylaxis Protonix and DVT prophylaxis lovenox Physician Punch Hand note has been reviewed by physician. Signing provider agrees with the documented findings, assessment, and plan of care. I have personally seen and examined the patient, reviewed the COPY SUPERVISOR /PAs history, exam and MDM and agree with the assessment and plan as written. Based on total visit time, I have performed more than 50% of the visit. As above: Patient tolerating liquids. Complaining of a bad headache. Continue IV hydration. Continue liquid diet. Anticipate discharge tomorrow. Objective - Vital Signs Vital signs: Vital Signs Temp 98.2 F 01/04/22 12:09 Pulse 100 01/04/22 12:09 Resp 16 01/04/22 12:09 BP 153/86 01/04/22 12:09 Pulse Ox 98 01/04/22 12:09 Intake & Output 01/03/22 01/04/22 01/04/22 18:59 06:59 18:59 Intake Total 1110 750 Output Total 25 Balance 1085 750 Weight 60 kg 60 kg Intake: IV 1050 Intake, IV Titration 60 750 Amount D5-0.45% NaCl with KCl 750 20Meq/l 1,000 ml @ 125 mls/hr IV .Q8H [facility] Rx#: [id number] Lactated Ringers 1,000 ml 60 @ 20 mls/hr IV .Q24H [facility] Rx#:[id number] Output: Estimated Blood Loss 25 - Labs CBC & Chem 7: 01/04/22 05:12 01/04/22 05:12 Labs: Abnormal Lab Results - Last 24 Hours (Table) 01/04/22 01/04/22 Range/Units 05:12 05:12 MCV 101.3 H (80.0-100.0) fL MCHC 30.2 L (31.0-37.0) g/dL Glucose 111 H (74-99) mg/dL
[2022-01-04] MEDS: HYDROcodone/APAP 5-325MG 1 EACH TAB PO PRN (17:46)
[2022-01-04] MEDS: METOPROLOL TARTRATE 25 MG TAB PO SCH (19:52)
[2022-01-04] MEDS: TOPIRAMATE 100 MG TAB PO SCH (19:52)
[2022-01-04] MEDS ORDERED: MONTELUKAST 10 MG TAB PO SCH (21:00)
[2022-01-05 03:57] VITALS: RESP 16
[2022-01-05] MEDS: METOCLOPRAMIDE 5 MG/ML 2 ML VIAL IVP SCH ×2 (05:33→13:03)
[2022-01-05] MEDS: D5-0.45% NACL WITH KCL 20MEQ/L 1,000 ML IV SCH ×2 (05:33→13:03)
[2022-01-05] MEDS: HYDROcodone/APAP 5-325MG 1 EACH TAB PO PRN ×2 (05:37)
[2022-01-05] MEDS ORDERED: LEVOTHYROXINE 88 MCG TAB PO SCH (06:30)
[2022-01-05] MEDS ORDERED: SUMAtriptan succinate 50 MG TAB PO STA (07:35)
[2022-01-05] MEDS ORDERED: MAGNESIUM SULFATE-D5W PMX 1 GM in DEXTROSE/WATER 1 100ML.BAG IVPB ONE (07:36)
[2022-01-05] MEDS ORDERED: ACETAMINOPHEN IV (For NPO) 1,000 MG in EMPTY BAG 1 BAG IVPB PRN (07:37)
[2022-01-05] MEDS ORDERED: SUMAtriptan succinate 50 MG TAB PO PRN (07:39)
[2022-01-05] MEDS ORDERED: diphenhydrAMINE 50 MG/ML 1 ML VIAL IVP STA (08:19)
[2022-01-05] MEDS ORDERED: LORazepam 2 MG/ML INJ IV STA (08:20)
[2022-01-05] MEDS: PANTOPRAZOLE 40 MG/10 ML VIAL IVP SCH (08:24)
[2022-01-05] MEDS: ENOXAPARIN 40 MG/0.4 ML SYRINGE SQ SCH (08:24)
[2022-01-05] MEDS: METOPROLOL TARTRATE 25 MG TAB PO SCH (08:24)
[2022-01-05] MEDS: FAMOTIDINE 20 MG/2 ML VIAL IV SCH (08:24)
[2022-01-05] MEDS: TOPIRAMATE 100 MG TAB PO SCH (08:24)
[2022-01-05] MEDS ORDERED: LORATADINE 10 MG TAB PO SCH (09:00)
--- NOTE | 2022-01-05 09:23 | P.CONS ---
History of Present Illness - Reason for Consult Consult date: 01/04/22 medical management migranes Requesting physician: Gary Boyle - Chief Complaint Dyshpagia - History of Present Illness This is a pleasant 61-year-old female status post Laparoscopic repair of her esophageal hernia with mesh, postop day #1 . Tolerated procedure well. Reports headache, attributing it to the IV Dilaudid, accompanied by dry heaves, nausea. Positive abdominal and back pain. Feels hungry, upper GI pending. Maintained on IV fluid hydration. Denies chest pain, palpitations or shortness of breath. Afebrile, normal WBC. Hemoglobin 12.9, platelets 221. Electrolytes within normal limits. Renal function stable. Maintaining O2 sats in the high 90s on room air. Review of Systems ROS Statement: Those systems with pertinent positive or pertinent negative responses have been documented in the HPI. ROS Other: All systems not noted in ROS Statement are negative. Past Medical History Past Medical History: Asthma, GERD/Reflux, Hyperlipidemia, Hypertension, Thyroid Disorder Additional Past Medical History / Comment(s): MIGRAINES. History of Any Multi-Drug Resistant Organisms: None Reported Past Surgical History: Appendectomy, Back Surgery, Cholecystectomy, Hernia Repai r, Hysterectomy, Orthopedic Surgery Additional Past Surgical History / Comment(s): COLONOSCOPY/EGD, CERVICAL FUSION, PAIN STIMULATOR RIGHT HIP,. RIGHT FOOT SURGERY, HIATAL HERNIA REPAIR. Past Anesthesia/Blood Transfusion Reactions: Family History of Problems w/ Anesthesia, Postoperative Nausea & Vomiting (PONV) Additional Past Anesthesia/Blood Transfusion Reaction / Comm: Mom very slow to wake up. Smoking Status: Never smoker - Past Family History Sister(s) Family Medical History: Cancer Mother Family Medical History: Cancer Additional Family Medical History / Comment(s): Uterine cancer, Alzheimers. Father Family Medical History: Coronary Artery Disease (CAD) Medications and Allergies Home Medications Medication Instructions Recorded Confirmed Type Atorvastatin [Lipitor] 20 mg PO HS 05/18/21 01/03/22 History Cetirizine HCl [Zyrtec ODT] 10 mg PO DAILY 05/18/21 01/03/22 History Cyclobenzaprine [Flexeril] 10 mg PO BID 05/18/21 01/03/22 History Dicyclomine HCl 20 mg PO TID 05/18/21 01/03/22 History HYDROcodone/APAP 10-325MG [[place] 1 tab PO TID PRN 05/18/21 01/03/22 History 10-325] Levothyroxine Sodium [Synthroid] 88 mcg PO DAILY 05/18/21 01/03/22 History Metoclopramide [Reglan] 10 mg PO TID 05/18/21 01/03/22 History Metoprolol Tartrate [Lopressor] 25 mg PO BID 05/18/21 01/03/22 History Montelukast [Singulair] 10 mg PO HS 05/18/21 01/03/22 History Omeprazole [PriLOSEC] 40 mg PO BID 05/18/21 01/03/22 History Ondansetron [Zofran] 4 mg PO Q8HR PRN 05/18/21 01/03/22 History SUMAtriptan SUCCINATE [Imitrex] 100 mg PO DIRECTED PRN 05/18/21 01/03/22 History Topiramate [Topiramate ER] 100 mg PO BID 05/18/21 01/03/22 History Docusate [Colace] 100 mg PO BID PRN 01/02/22 01/03/22 History Allergies Allergy/AdvReac Type Severity Reaction Status Date / Time citalopram [From Celexa] Allergy Nausea & Verified 01/03/22 08:23 Vomiting duloxetine [From Cymbalta] Allergy Nausea & Verified 01/03/22 08:23 Vomiting Physical Exam Vitals: Vital Signs Temp 98.2 F 01/04/22 12:09 Pulse 100 01/04/22 12:09 Resp 16 01/04/22 12:09 BP 153/86 01/04/22 12:09 Pulse Ox 98 01/04/22 12:09 Intake & Output 01/03/22 01/04/22 01/04/22 18:59 06:59 18:59 Intake Total 1110 750 Output Total 25 Balance 1085 750 Weight 60 kg 60 kg Intake: IV 1050 Intake, IV Titration 60 750 Amount D5-0.45% NaCl with KCl 750 20Meq/l 1,000 ml @ 125 mls/hr IV .Q8H [facility] Rx#: [id number] Lactated Ringers 1,000 ml 60 @ 20 mls/hr IV .Q24H [facility] Rx#:[id number] Output: Estimated Blood Loss 25 PHYSICAL EXAM: VITAL SIGNS: [As above] GENERAL: Sitting up in bed, nauseated complaining of migraine HEENT: Conjunctivae normal. eyes normal. NECK: No JVD. No thyroid enlargement. No LNs CARDIOVASCULAR: S1, S2 regular..No murmur RESPIRATION: Breath sounds diminished in the bases. No rhonchi or crackles. No bronchial breathing. ABDOMEN: Soft, nondistended, status post surgery ,No guarding. Hypoactive Bowel sounds. LEGS: No edema. no swelling PSYCHIATRY: Alert and oriented X3, mood and affect normal. NERVOUS SYSTEM: Cranial N 2-12 grossly normal. Moves all 4 limbs. No focal deficits. Strength and sensation grossly intact.. Skin: Warm and dry, no rash Results CBC & Chem 7: 01/04/22 05:12 01/04/22 05:12 Assessment and Plan Assessment: Hiatal hernia, status post Laparoscopic repair of her esophageal hernia with mesh Cephalgia-migraine, history of migraines Family history of PONV Chronic intermittent asthma, stable Gastroesophageal reflux disease Hypertension Hyperlipidemia Hypothyroidism Plan: Continue on current medication regime ,monitoring and symptomatic treatment. Maintain IV fluid hydration and antiemetics. Upper GI pending. IV Tylenol, IV magnesium ordered for migraine in addition to IV Reglan. Aggressive pulmonary toileting with incentive spirometer ordered. Protonix for GI prophylaxis ordered. Recommend increase ambulation as tolerated. Pain management as per primary . Thank you for the consult. The impression and plan of care has been dictated as directed. : I performed a history and examination of this patient, discussed the same with the dictator. I agree with the dictator's note ,documented as a scribe. Any additional findings or plans will be noted.
--- NOTE | 2022-01-05 10:47 | P.PN ---
Subjective Progress Note Date: 01/05/22 - History of Present Illness This is a pleasant 61-year-old female status post Laparoscopic repair of her esophageal hernia with mesh, postop day #1 . Tolerated procedure well. Reports headache, attributing it to the IV Dilaudid, accompanied by dry heaves, nausea. Positive abdominal and back pain. Feels hungry, upper GI pending. Maintained on IV fluid hydration. Denies chest pain, palpitations or shortness of breath. Afebrile, normal WBC. Hemoglobin 12.9, platelets 221. Electrolytes within normal limits. Renal function stable. Maintaining O2 sats in the high 90s on room air. 01/05/2022 ambulating in room, stating abdominal pain significantly improved. Completed upper GI yesterday reporting no evidence of leak or significant obstruction and started on [place] clear liquid diet. Reports migraine headache unrelieved, unable to sleep and causing her to have mild nausea with dry heaving. Passing flatus, no bowel movement. Afebrile. Objective - Vital Signs Vital signs: Vital Signs Temp 97.5 F L 01/05/22 03:56 Pulse 84 01/05/22 03:56 Resp 16 01/05/22 03:56 BP 157/94 01/05/22 03:56 Pulse Ox 98 01/05/22 03:56 Intake & Output 01/04/22 01/05/22 01/05/22 18:59 06:59 18:59 Intake Total 750 Balance 750 Weight 60 kg Intake: Intake, IV Titration 750 Amount D5-0.45% NaCl with KCl 750 20Meq/l 1,000 ml @ 125 mls/hr IV .Q8H [facility] Rx#: [id number] Other: # Voids 2 3 - Exam PHYSICAL EXAM: VITAL SIGNS: [As above] GENERAL: Alert and oriented 3, standing up next to bed, nauseated complaining of migraine HEENT: Conjunctivae normal. eyes normal.MMM. NECK: Supple, No JVD. CARDIOVASCULAR: S1, S2 regular.No murmur RESPIRATION: Breath sounds diminished in the bases. ABDOMEN: Soft, nondistended, status post surgery ,No guarding. Positive Bowel sounds. LEGS: No edema. no swelling NERVOUS SYSTEM: Cranial N 2-12 grossly normal. No focal deficits. Strength and sensation grossly intact. Skin: Warm and dry, no rash - Labs CBC & Chem 7: 01/04/22 05:12 01/04/22 05:12 Assessment and Plan Assessment: Hiatal hernia, status post Laparoscopic repair of her esophageal hernia with sh Cephalgia-migraine, history of migraines Family history of PONV Chronic intermittent asthma, stable Gastroesophageal reflux disease Hypertension Hyperlipidemia Hypothyroidism Plan: Continue on current medication regime ,monitoring and symptomatic treatment. Migraine cocktail ordered; IV Tylenol , IV magnesium, IV Benadryl, Ativan IV in addition to resuming patient's Imitrex and Zyrtec. Maintain IV fluid hydration and antiemetics. [place] diet/pain management per primary. Medically cleared for discharge once migraine subsides, follow-up with PCP, in one week. The impression and plan of care has been dictated as directed. : I performed a history and examination of this patient, discussed the same with the dictator. I agree with the dictator's note ,documented as a scribe. Any additional findings or plans will be noted.
[2022-01-05 12:38] VITALS: BP 138/85; PULSE 78; TEMP 98.9
--- NOTE | 2022-01-05 15:53 | P.DS ---
Providers Date of admission: 01/03/22 23:47 Expected date of discharge: 01/05/22 Attending physician: Gary Boyle Consults: 01/03/22 11:05 Consult Physician Routine Consulting Provider: Stewart Amos Consult Reason/Comments: Medical management Do you want consulting provider notified?: Yes Primary care physician: Stewart Amos MD Hospital Course: Discharge diagnosis 1. Recurrent paraesophageal hernia status post laparoscopic repair of paraesophageal hernia with mesh placement 2. Migraine headache Hospital course This is a 61-year-old female with complaints of dysphagia and development of a recurrent hiatal hernia. She is status post laparoscopic repair of paraesophageal hernia with mesh placement for recurrent paraesophageal hernia. Upper GI completed showing no evidence of leak or obstruction. Patient denies any significant abdominal pain. Denies any nausea vomiting. She is tolerating liquids. She is having flatus. She was seen by medicine service regarding her migraine headaches. And Imitrex has helped. Patient is up and ambulating. She is afebrile. Her incision sites are clean dry and intact. She is stable for discharge. Please refer to chart for any further details. Physician [employer] note has been reviewed by physician. Signing provider agrees with the documented findings, assessment, and plan of care. Patient Condition at Discharge: Stable Plan - Discharge Summary Discharge Rx Participant: Yes New Discharge Prescriptions: Continue Metoclopramide [Reglan] 10 mg PO TID Dicyclomine HCl 20 mg PO TID Montelukast [Singulair] 10 mg PO HS Cyclobenzaprine [Flexeril] 10 mg PO BID Cetirizine HCl [Zyrtec ODT] 10 mg PO DAILY Metoprolol Tartrate [Lopressor] 25 mg PO BID SUMAtriptan SUCCINATE [Imitrex] 100 mg PO DIRECTED PRN PRN Reason: Migraine Headache Levothyroxine Sodium [Synthroid] 88 mcg PO DAILY Topiramate [Topiramate ER] 100 mg PO BID Ondansetron [Zofran] 4 mg PO Q8HR PRN PRN Reason: Nausea Omeprazole [PriLOSEC] 40 mg PO BID HYDROcodone/APAP 10-325MG [[place] 10-325] 1 tab PO TID PRN PRN Reason: Pain Atorvastatin [Lipitor] 20 mg PO HS Docusate [Colace] 100 mg PO BID PRN PRN Reason: Constipation Discharge Medication List Atorvastatin [Lipitor] 20 mg PO HS 05/18/21 [History] Cetirizine HCl [Zyrtec ODT] 10 mg PO DAILY 05/18/21 [History] Cyclobenzaprine [Flexeril] 10 mg PO BID 05/18/21 [History] Dicyclomine HCl 20 mg PO TID 05/18/21 [History] HYDROcodone/APAP 10-325MG [[place] 10-325] 1 tab PO TID PRN 05/18/21 [History] Levothyroxine Sodium [Synthroid] 88 mcg PO DAILY 05/18/21 [History] Metoclopramide [Reglan] 10 mg PO TID 05/18/21 [History] Metoprolol Tartrate [Lopressor] 25 mg PO BID 05/18/21 [History] Montelukast [Singulair] 10 mg PO HS 05/18/21 [History] Omeprazole [PriLOSEC] 40 mg PO BID 05/18/21 [History] Ondansetron [Zofran] 4 mg PO Q8HR PRN 05/18/21 [History] SUMAtriptan SUCCINATE [Imitrex] 100 mg PO DIRECTED PRN 05/18/21 [History] Topiramate [Topiramate ER] 100 mg PO BID 05/18/21 [History] Docusate [Colace] 100 mg PO BID PRN 01/02/22 [History] Follow up Appointment(s)/Referral(s): Stewart Amos MD [Primary Care Provider] - 1 Week Gary Boyle MD [STAFF PHYSICIAN] - 1 Week Activity/Diet/Wound Care/Special Instructions: No driving while taking [place] No lifting over 10 pounds Shower daily. No soaking or tub baths for 2 weeks Very light activity until you are reevaluated at your follow up appointment with your surgeon Discharge Disposition: HOME SELF-CARE
== END 2022-01-05 18:17 | disposition home or self-care (01) ==
LOC: OR 07:44 → 5NMEDONC 15:23 → OR 23:47 → 5NMEDONC 23:47
PROVIDERS: ADMIT Surgery; ATTEND Surgery
DX: K44.9 Diaphragmatic hernia without obstruction or gangrene (principal); G43.909 Migraine, unspecified, not intractable, without status migrainosus; J45.20 Mild intermittent asthma, uncomplicated; K21.9 Gastro-esophageal reflux disease without esophagitis; E78.5 Hyperlipidemia, unspecified; I10 Essential (primary) hypertension; E03.9 Hypothyroidism, unspecified; Z90.49 Acquired absence of other specified parts of digestive tract; Z90.710 Acquired absence of both cervix and uterus; Z98.890 Other specified postprocedural states; Z98.1 Arthrodesis status; Z96.89 Presence of other specified functional implants; Z80.49 Family history of malignant neoplasm of other genital organs; Z82.0 Family history of epilepsy and other diseases of the nervous system; Z82.49 Family history of ischemic heart disease and other diseases of the circulatory system; Z79.890 Hormone replacement therapy; Z79.891 Long term (current) use of opiate analgesic; Z79.899 Other long term (current) drug therapy; Z88.8 Allergy status to other drugs, medicaments and biological substances
CPT/HCPCS: 80048; 85025; 74210; 43282; G0378 ×2; C1781; J3030; J2250; J2060; J1200; J1100; J2710; J2765 ×3; J0690 ×2; J2405 ×2; J1650 ×2; J3010; J1170 ×3; J3475 ×2; J0131; J1885; J0330; J2704; C9113 ×2; Q9967; J1644; J2001